=== PATIENT | male | born 1960 | race Caucasian/White ===

== ENCOUNTER 2023-11-27 08:22 | Outpatient (AMB) | payer OTHER, SELFPAY ==
--- NOTE | 2023-11-27 08:24 | MHC.OFFVIS ---
Vital Signs 11/27/23 08:35 Height 5 ft 6 in Weight 214 lb BMI 34.5 BP 172/90 H Blood Pressure Location Rt brachial Position Sitting Pulse 63 Intake Visit Reasons: umbilical hernia Intake Note: This patient was referred by Eve Watson for umbilical hernia assessment. Present for 1-2yrs. Pt c/o: bulging out of belly button. Does crossfit has hard time bending to tie shoes. No DI Chocolatier Required: No Accompanied by: Self / Same As Patient Allergies No Known Allergies Allergy (Verified 11/27/23 08:33) HPI HPI umbilical hernia: Details: 63-year-old male referred for an umbilical hernia. He says he has noticed this lump on his umbilicus for about 1 to 2 years now. He feels that this has increased in size. He says that this causes discomfort when he is bending over. He denies GI complaints He is an ex-smoker. He says he takes a nicotine sublingual for this. He is otherwise healthy and active and does CrossFit. [facility] Medical History Umbilical hernia Social History Alcohol intake: current Alcohol intake frequency: holidays/special occasions only Alcohol type: wine Patient Tobacco Use Status: Never used Tobacco Review of Systems Const Denies chills and Denies fever(s) Card Denies chest pain, Denies dyspnea and Denies dyspnea on exertion Resp Denies cough, Denies dyspnea and Denies dyspnea on exertion GI Denies hematochezia and Denies change in bowel habits Denies hematuria and Denies difficulty urinating Musc Denies back pain and Denies limited range of motion Neuro Denies focal weakness and Denies convulsions Psych Denies depression and Denies mood swings Physical Exam Const General: comfortable and no acute distress Orientation/consciousness: patient oriented x3 Neck Neck: Yes no lymphadenopathy Resp Auscultation: clear to auscultation bilaterally Cardio Rhythm: regular rhythm GI Other: Umbilical hernia, reducible, about 2 cm, nontender Palpation (GI): Soft to palpation, nontender and no guarding Neuro General: patient oriented x3 Assessment & Plan Assessment & Plan (1) Umbilical hernia: Code(s): K42.9 - Umbilical hernia without obstruction or gangrene Category: Medical Plan He has a reducible umbilical hernia as described above. This measures about 2 cm. I explained to him the technique of repair of an umbilical hernia with possible mesh placement. I reviewed the risks including but not limited to bleeding, infections, injury to bowel, recurrence, postop pain, poor healing, inherent risks of anesthesia, as well as the benefits and alternatives. I also described to him what to expect postoperatively. Coding Level of Care Code New Pt Level 3 (88434) Diagnoses Umbilical hernia K42.9
[2023-11-27 08:35] VITALS: BP 172/90; PULSE 63; BMI 34.5
== END 2023-11-27 08:49 | disposition home or self-care (01) ==
PROVIDERS: PCP Internal Medicine; Visit Provider Surgery
DX: K42.9 Umbilical hernia without obstruction or gangrene (principal)
CPT/HCPCS: 99203

== ENCOUNTER → 2023-11-27 08:22 | Outpatient (BNVA) | payer OTHER, SELFPAY | PROVIDERS: PCP Internal Medicine; Visit Provider Surgery ==

== ENCOUNTER 2024-01-06 07:31 | Day surgery (SDC) | payer OTHER, SELFPAY ==
[2024-01-02 09:49] VITALS: BMI 34.5
[2024-01-06 08:00] VITALS: BMI 34.4
[2024-01-06 08:05] VITALS: BP 149/99; PULSE 70; RESP 18; TEMP 36.7; O2SAT 98
--- NOTE | 2024-01-06 09:30 | P.CONAN_ITS ---
HPI - Anesthesia Eval Consult details Narrative: 63 yo M presenting for umbilical hernia repair. Nicotine pouch in mouth upon arrival to Short Stay Surgery. Extensive discussion with patient - he states that nicotine patch does not dissolve. Patient was educated regarding aspiration risk. Surgery to be delayed until patient is 2 hours NPO. PMFSH Active Problems Active Problems: All Active Problems Umbilical hernia (Acute) Past Medical History Medical History GERD (gastroesophageal reflux disease) Former smoker Good exercise tolerance Umbilical hernia Family History Family history of problems with anesthesia: No Surgical History Surgical History Hx of appendectomy H/O colonoscopy History of Problems with Anesthesia: No Social History Social History (Updated 01/02/24 @ 09:46 by Shannon Hardwick RN) Are you a primary point of care technician to a significant other at home: No Do you presently have visiting nurse or other home services: No Alcohol intake: current Alcohol intake frequency: holidays/special occasions only Alcohol type: wine Patient Tobacco Use Status: Former Tobacco user Tobacco use type: Cigarette Patient Interested in Nicotine Replacement: No Have you been hit, kicked, punched, or otherwise hurt by someone within the past year? If so, by whom?: No Are you DNR?: No Advance Directives: No Advance Directives Information Provided: Yes Recently lost weight without trying: No Nutrition Risks: No Nutritional Risk Meds Allergies Allergy/AdvReac Type Severity Reaction Status Date / Time No Known Allergies Allergy Verified 11/27/23 08:33 Active Medications: Current Medications Lactated Ringer's (Lr) 1,000 mls @ 80 mls/hr IVCONT .[id number] [facility] Last Admin: 01/06/24 09:41 Dose: 80 mls/hr Home Medications ?Medication ?Instructions ?Recorded ?Confirmed ?Last Taken ?Type Prilosec OTC 20 mg 01/06/24 01/05/24 History Exam Exam Date and Time: 01/06/24 0940 Height,Weight and Vital Signs: Height 5 ft 6 in Weight 96.615 kg Last Vital Signs Temp 98.1 F 01/06/24 08:05 Pulse 70 01/06/24 08:05 Resp 18 01/06/24 08:05 BP 149/99 H 01/06/24 08:05 Pulse Ox 98 01/06/24 08:05 O2 Del Method Room Air 01/06/24 08:05 Airway Mallampati Class: II TM Dist: >3cm Neck ROM: Full Loose/Missing/Broken Teeth: Yes (missing molar left jaw) Heart: S1S2 Lungs: CTAB Assessment and Plan Assessment Anesthesia Assessment: Anesthesia Plan Discussed and Chart Reviewed Final Anesthetic Review Family History of Problems with Anesthesia: No History of Problems with Anesthesia: No NPO: Yes ASA Class: II Final Preanesthetic Review: No Changes in Pt Med Stat, Meds/Allgs Chart Reviewed, Consent Obtained/Reviewed and Anes Risks/Benef Reviewed Patient Risk: Low Procedure Risk: Low Anesthetic Plan Anesthetic Plan: GA and Agree w/ Assess. and Plan Disposition: Standard PACU
--- NOTE | 2024-01-06 09:36 | MHC.SHP ---
Pre-Procedural Eval Section A - 24 Hr Update-Section A only Date of Service: 01/06/24 Section B - Complete if H&P > 30 days Chief Complaint: Umbilical hernia without obstruction or gangrene Details of Present Illness: Has reducible umbilical hernia Relevant Family History (Specify if Yes): No Relevant Social History: Tobacco Use (Nicotine pouch) Present Medications: see Short Stay Collaborative assessment Medical History: No relevant PMH Allergies: Allergies Allergy/AdvReac Type Severity Reaction Status Date / Time No Known Allergies Allergy Verified 11/27/23 08:33 Review of Systems Sugical H&P ROS: Negative: Constitution, Cardiovascular, Respiratory and Neurological Exam Surgical H&P Exam: Normal: Heart, Normal: Lungs and Normal: Extremities and Significant Findings: Abdomen (Umbilical hernia 2 cm reducible) Plan Diagnosis/Plan: Unchanged I have reviewed the history and physical and performed a pertinent physical examination on my patient. No changes have occurred unless specified. Time Spent With Patient Time: Total time managing care of this patient today ____ minutes.
[2024-01-06] MEDS: Lactated Ringers 1,000 ML 80 ML IVCONT (09:41)
--- NOTE | 2024-01-06 09:46 | PC.NURSE ---
Dr. Dwyer was updated that patient had a nicotine pouch in his mouth upon arrival. Dr. Dwyer and Dr. Britton discussed with patient and each other and decision was made to delay procedure until 10:00 - 2 hours after pouch was removed from mouth. patient in agreeance.
--- NOTE | 2024-01-06 10:40 | W.PM.OPN ---
Operative Note Operative Note Date of Service: 01/06/24 Narrative: Preop diagnosis: Umbilical hernia reducible Postop diagnosis: The same Procedure: Repair of reducible umbilical hernia with mesh Surgeon: Ruy Britton MD assistant infant toddler teacher: KAVYA Claudio The patient is a 63-year-old male with a reducible umbilical hernia, here for repair with mesh. He understood the technique of the planned procedure as well as the risks, benefits, and alternatives. He was brought to the operating room. He was placed supine under general anesthesia via laryngeal mask airway. The abdomen was prepped and draped in the usual sterile fashion. A surgical time-out was done. The patient received cefazolin 2 g IV preoperatively I infiltrated the planned line of incision with lidocaine 1%. I made a transverse supraumbilical curvilinear incision with a blade 15. This was carried down with electrocautery through the full-thickness of the skin subcutaneous fat. I proceeded to then lift the umbilicus as a flap off of the rest of the subcutaneous layer. I was able to identify the sac. This was created from the umbilicus. I sharply dissected the hernia sac down to the fascial layer until I was able to clearly define the defect. I dissected adhesions to clear up the fascial margins. The fascial defect was about 1 cm in diameter. I used a small-sized Ventralex mesh and this was used to reinforced the fascial defect. I secured the Prolene straps of the mesh to the fascial edge with Prolene 2 sutures. I closed the fascial defect with a [id number] Maxon 1 stitch The umbilicus was tacked down to the fascia with a Polysorb 3-0 stitch to re-create the dimple. The subdermal layer was reapposed with Polysorb 3-0 sutures. Skin closure was achieved with Polysorb 4-0 subcuticular running sutures. The area was infiltrated with Marcaine 0.5% for postop analgesia. Dressings were applied. The procedure was completed The patient tolerated the procedure well. There were no immediate complications. There was minimal blood loss The patient was extubated without difficulty and transferred to the recovery room with stable vital signs.
[2024-01-06 10:49] VITALS: BP 167/97; PULSE 68; RESP 18; TEMP 36.2; O2SAT 98
[2024-01-06 10:54] VITALS: BP 161/90; PULSE 66; RESP 18; O2SAT 97
[2024-01-06 10:59] VITALS: BP 161/96; PULSE 64; RESP 18; O2SAT 97
[2024-01-06 11:04] VITALS: BP 162/95; PULSE 62; RESP 18; O2SAT 97
[2024-01-06 11:19] VITALS: BP 148/86; PULSE 61; RESP 18; TEMP 36.6; O2SAT 98
== END 2024-01-06 12:34 | disposition home or self-care (01) ==
PROVIDERS: PCP Internal Medicine; Visit Provider Surgery
PROC: (CPT 49591; principal; 2024-01-06 09:00)
DX: K42.9 Umbilical hernia without obstruction or gangrene (principal); K66.0 Peritoneal adhesions (postprocedural) (postinfection); Z87.891 Personal history of nicotine dependence
CPT/HCPCS: 49591; C1781; J0690; J1100; J1885; J2003; J2405; J2704; J2795; J3010

== ENCOUNTER → 2024-01-06 07:31 | Outpatient (BNV) | payer OTHER, SELFPAY | PROVIDERS: PCP Internal Medicine; Visit Provider Surgery | DX: K42.9 Umbilical hernia without obstruction or gangrene (principal) | CPT/HCPCS: 49591 ==

== ENCOUNTER 2024-01-19 13:28 | Outpatient (AMB) | payer OTHER, SELFPAY ==
--- NOTE | 2024-01-19 13:30 | MHC.OFFVIS ---
Vital Signs 01/19/24 13:31 Height 5 ft 8 in Weight 212 lb BMI 32.2 Intake Visit Reasons: s/p repair umbilical hernia Intake Note: This patient presents for a post-op assessment status post repair of reducible umbilical hernia with mesh. Pt c/o; reports no complaints pertaining to surgery. Glass Deposition Tender Required: No Accompanied by: Self / Same As Patient Allergies No Known Allergies Allergy (Verified 01/19/24 13:35) HPI HPI s/p repair umbilical hernia: Details: He underwent repair of an umbilical hernia with mesh last January 05. He says he is doing ?great?. He says he feels well and never had significant pain PFSH Medical History GERD (gastroesophageal reflux disease) Former smoker Good exercise tolerance Umbilical hernia Surgical History History of umbilical hernia repair (~01/06/24) Hx of appendectomy H/O colonoscopy Social History Are you a primary career transition specialist to a significant other at home: No Do you presently have visiting nurse or other home services: No Alcohol intake: current Alcohol intake frequency: holidays/special occasions only Alcohol type: wine Patient Tobacco Use Status: Former Tobacco user Tobacco use type: Cigarette Review of Systems Const Denies chills and Denies fever(s) Card Denies chest pain at rest GI Denies abdominal pain Physical Exam Vital Signs: BMI result Body Mass Index 32.2 Const General: comfortable and no acute distress Resp Effort & Inspection: normal respiratory effort GI Other: Umbilical hernia repair site is well healed, not infected, repair intact Palpation (GI): Soft to palpation, not firm, nontender and no guarding Assessment & Plan Assessment & Plan (1) Umbilical hernia: Code(s): K42.9 - Umbilical hernia without obstruction or gangrene Category: Medical Plan: Status post repair with mesh procedure doing very well. The repair site is intact. I advised him to avoid lifting anything more than 20 lb for at least 2 more weeks. He can otherwise follow up on a p.r.n. basis. Coding Level of Care Code Global (31342) Diagnoses Umbilical hernia K42.9
[2024-01-19 13:31] VITALS: BMI 32.2
== END 2024-01-19 13:51 | disposition home or self-care (01) ==
PROVIDERS: PCP Internal Medicine; Visit Provider Surgery
DX: K42.9 Umbilical hernia without obstruction or gangrene (principal); Z09 Encounter for follow-up examination after completed treatment for conditions other than malignant neoplasm
CPT/HCPCS: 99212

== ENCOUNTER 2024-07-15 12:51 | Outpatient (REF) | payer OTHER, SELFPAY ==
--- OUTSIDE RECORDS SUMMARY | 2024-07-15 12:55 | XMS_ITS | Encounter Summary ---
Author Organization [facility] Address [address] [place] [address] Care Team Providers Care Software Configuration Engineer Name Role Phone Eve Watson MD Primary Care Provider [phone] Reason for Visit * Reason Onset Date Comments Labs Only 07/15/2024 Encounter Details Date Type Department Care Team ([facility] Contact Info) Description 07/15/2024 Telephone Adult Medicine [address] [phone] Eve Watson MD [address] [place] [phone] Labs Only Social History Tobacco Use Types Packs/Day Years Used Date Smoking Tobacco: Former Cigarettes 0.5 20 Q uit: 2000 Smokeless Tobacco: Former Alcohol Use Standard Drinks/Week Comments Yes 10 (1 standard drink = 0.6 oz pu re alcohol) Housing Instability Answer Date Recorde d Are you worried that in the next 2 months you may not have stable housing? No 07/06/2024 Food Access & Nutrition Answer Date Rec orded Do you have access to a vari ety of food including fruits and vegetables? No 07/06/2024 Health Literacy Answer Date Recorded How often do you need to hav e someone help you when you read instructions, pamphlets, or other written material from your doctor or pharmacy? Never 07/06/2024 Caregiver: How often do you need to have someone help you when you read instructions, pamphlets, or other written material from your doctor or pharmacy? Not on file 07/06/2024 Financial Risk Answer Date Recorded How hard is it for you to pa y for the very basics like food, housing, medical care, and air conditioning / heating? Not very hard 07/06/2024 Transportation Answer Date Recorded Has the lack of transportati on kept you from meetings, work, or from getting things needed for daily living? No Has the lack of transportati on kept you from medical appointments or from getting medications? No 07/06/2024 Social Isolation Answer Date Recorded How often do you feel lonely or isolated from th ose around you? Never 07/06/2024 Food Risk Answer Date Recorded Within the past 12 months we worried whether our food would run out before we got money to buy more. Never true 07/06/2024 Within the past 12 months th e food we bought just didn't last and we didn't have money to get more. Never true 07/06/2024 Dependent Care Answer Date Recorded Do you need help finding or paying for care for your loved ones. For example, exceptional children's teacher or elderly care for an older adult? No 07/06/2024 Education Answer Date Recorded Do you think completing more education or training, like finishing a GED, going to college, or learning a trade, would be helpful for you? No 07/06/2024 Employment and Income Answer Date Recor ded During the last four weeks, have you been actively looking for work? No 07/06/2024 Living Situation Answer Date Recorded What is your living situation? 0 07/06/2024 Sex and Gender Information Value Date Recorded Sex Assigned at Not on file Legal Sex Male 8:44 AM EST Gender Identity Not on file Sexual Orientation Not on file documented as of this encounter Progress Notes * Tameka Gutierrez MA - 07/15/2024 12:23 PM EDT Lab orders faxed via computer and also printed out and handed to pt. * Nadiya Flores - 07/15/2024 11:25 AM EDT Patient calling wanted his lab order to go to [facility] . Currently is at the lab and states he also did fast for them, looking to speak with someone. States he shared in his appt on 07/06 that PCP was supposed to send them there, please advise documented in this encounter Plan of Treatment Upcoming Encounters Date Type Department Care Team (Late st Contact Info) Description 10/21/2024 2:30 PM EDT Office Visit Adult Medicine [address] [phone] Eve Watson MD [address] [place] [phone] documented as of this encounter Visit Diagnoses Not on filedocumented in this encounter Additional Health Concerns Assessment Noted Time PHQ-9 Depression Total Score: 0 07/07/19 25 1:46 PM EDT documented as of this encounter Care Teams Software Configuration Engineer Relationship Specialty Start Date End Date Eve Watson MD [address] [place] [phone] PCP - General Internal Medicine 10/01/21 documented as of this encounter
[2024-07-15 13:08] LABS: MANUAL DIFF FLAG NO
[2024-07-15 13:29] LABS: Basophils Percent Auto 0.3 % (0-2); Eosinophils Absolute Auto 0.1 X10*3/uL (0.0-0.4); Eosinophils Percent Auto 1.4 % (0-4); Hemoglobin 14.4 g/dl (14.0-18.0); Imm Gran Abs Auto 0.03 X10*3/uL (0.00-0.03); Imm Gran Pct Auto 0.4 % (0.0-0.4); Lymphocytes Absolute Auto 1.4 X10*3/uL (1.2-4.9); Lymphocytes Percent Auto 19.9 % (20-40); Mean Corpuscular HGB Conc 34.3 g/dl (31.0-36.0); Mean Corpuscular Hemoglobin 30.2 pg (27.0-33.0); Mean Corpuscular Volume 88.1 fL (80.0-98.0); Mean Platelet Volume 10.1 fL (9.4-12.4); Monocytes Absolute Auto 0.5 X10*3/uL (0.1-1.2); Monocytes Percent Auto 6.6 % (2-11); Neutrophils Absolute Auto 4.9 x10*3/uL (2.0-8.3); Neutrophils Percent Auto 71.4 % (45-73); Platelet Count 206 X10*3/uL (160-400); Red Blood Count 4.77 X10*6/uL (4.60-5.80); Red Cell Distribution Width 13.2 % (11.0-16.0); White Blood Count 6.9 X10*3/uL (4.8-10.8)
[2024-07-15 13:36] LABS: Estimated Average Glucose 108 mg/dL; Hemoglobin A1C 138.2068 umol/L; Hemoglobin A1c % 5.4 % (<6.0); Total Hemoglobin (HGBA1C) 3842.6741 umol/L
[2024-07-15 14:11] LABS: Prostate Specific Antigen Scr 0.38 ng/mL (<0.05-4.0)
[2024-07-15 14:14] LABS: Alanine Aminotransferase 101 U/L (0-40); Albumin Level 4.4 g/dL (3.5-5.0); Alkaline Phosphatase 76 U/L (39-117); Anion Gap 13 (12-20); Aspartate Amino Transferase 48 U/L (5-37); Bilirubin Total 0.7 mg/dL (0.0-1.0); Blood Urea Nitrogen 16 mg/dL (9-16); Calcium 9.4 mg/dL (8.4-10.2); Carbon Dioxide 23 mmol/L (22-29); Chloride 106 mmol/L (96-108); Cholesterol 244 mg/dL (<200); Estimated Glomerular Filt Rate > 60; Glucose Random 92 mg/dL (60-115); HDL Cholesterol 104 mg/dL (>40); LDL Cholesterol Calculated 125 mg/dL (<100); Potassium 4.2 mmol/L (3.3-5.1); Sodium 138 mmol/L (135-145); Total Protein 7.3 g/dL (6.5-8.0); Triglycerides 79 mg/dL (<150)
[2024-07-15 14:25] LABS: Reflex LDLD? No
== END 2024-07-15 12:52 | disposition home or self-care (01) ==
LOC: HO.LAB 12:51
PROVIDERS: PCP Internal Medicine; Visit Provider Internal Medicine
DX: Z00.00 Encounter for general adult medical examination without abnormal findings (principal); Z12.5 Encounter for screening for malignant neoplasm of prostate; Z13.1 Encounter for screening for diabetes mellitus; Z13.220 Encounter for screening for lipoid disorders; Z13.0 Encounter for screening for diseases of the blood and blood-forming organs and certain disorders involving the immune mechanism
CPT/HCPCS: 36415; 80053; 80061; 83036; 84153; 85025

== ENCOUNTER 2024-09-01 12:56 | Outpatient (REF) | payer OTHER, SELFPAY ==
--- OUTSIDE RECORDS SUMMARY | 2024-09-01 13:50 | XMS_ITS | Clinical Summary ---
Author Organization [facility] [address] [facility] Address [address] [place] [address] Phone Care Team Providers Care Sales Representative Aircraft Name Role Phone Eve Watson MD Primary Care Provider [phone] Allergies No known active allergies Medications sildenafiL (VIAGRA) 100 mg tablet Take 0.5 Tablets by mouth as needed for Erectile Dysfunction. 03/02/2021 Active omeprazole OTC (PriLOSEC OTC) 20 mg EC tablet Take 1 tablet (20 mg total) by mouth 1 (one) time each day. Do not crush, chew, or split. 90 tablet 1 07/06/2024 Active Active Problems Problem Noted Date Diagnosed Date ED (erectile dysfunction) 02/23/2024 Elevated blood pressure reading 02/23/2024 Assessment & Plan (07/07/2024 6:20 AM EDT): BP elevated- patient reports feeing anxious at the visit, he reports that this also happens when he goes to the dentist, He reports that he underwent a umbilical hernia repair about 6 months ago at [facility] and Bp was good then. He also had coffee and nicotine prior to the appointment. He does eat hot sauce everyday. He does 3-5 cross fit session per week and walks about 1 mile daily. Patient counseled regarding DASH diet. Patient counseled regarding DASH diet, include more fruits and vegetables, whole grains, low-fat dairy products with decreased amounts of saturated/trans fats, also advised to include aerobic exercise 120 to 150 minutes/week and 65 to 75% max heart rate, with some additional strength training, advised to reduce alcohol to less than 2 drinks per day for meals and less than 1 drink per day for females. 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 GERD (gastroesophageal reflux disease) Overview (02/23/2024): occasional omeprazole use Encounters Date Type Department Care Team Description 07/15/2024 Telephone Adult Medicine [address] [place] [phone] Eve Watson MD Labs Only 07/06/2024 1:30 PM EDT Office Visit Adult [address] [phone] Eve Watson MD PE (physical exam), annual (Primary Dx); Prostate cancer screening; Elevated blood pressure reading; Actinic keratosis; Screening for malignant neoplasm of skin; Tinnitus of both ears from Last 3 Months Immunizations Name Administration Dates Next Due Influenza Quadravalent, MDCK , 0.5ml, preservative free (Flucelvax) 6mo and older 11/27/2021 Surgical History Surgery Date Site/Laterality Comments APPENDECTOMY PROCEDURE: HISTORICAL APPENDECTOMY COLONOSCOPY 02/27/2016 PROCEDURE: HISTORICAL COLONOSCOPY; COMMENT: , one hyperplastic polyp UMBILICAL HERNIA REPAIR 02/17/2023 - 02/17/2024 Medical History Medical History Date Comments GERD (gastroesophageal reflux disease) DX:GERD (gastroesophageal reflux disease); COMMENT: occasional omeprazole use Elevated blood pressure reading DX:Elevated blood pressure reading ED (erectile dysfunction) DX:ED (erectile dysfunction) H/O waterman DX:H/O waterman; CO MMENT: left facial, childhood Family History Medical History Relation Name Comments Schizophrenia Daughter 1 Liver cancer Father Prostate cancer Father COPD Mother long-term smoke r Relation Name Status Comments Brother Alive Daughter 1 Alive Daughter 2 Alive Father Mother Sister Alive Son Alive Social History Tobacco Use Types Packs/Day Years Used Date Smoking Tobacco: Former Cigarettes 0.5 20 Q uit: 1999 Smokeless Tobacco: Former Alcohol Use Standard Drinks/Week [...] care for your loved ones. For example, director child or elderly care for an older adult? [...] on file Sexual Orientation Not on file Obstetrics History Last Filed Vital Signs Vital Sign Reading Time Taken Comments Blood Pressure 150/94 07/07/2024 6:18 AM EDT Pulse 72 07/06/2024 1:41 PM EDT Temperature 36.6 C (97.8 F) 07/06/2024 1:41 PM EDT Respiratory Rate 14 07/06/2024 1:41 PM EDT Oxygen Saturation 98% 07/06/2024 1:41 PM EDT Inhaled Oxygen Concentration - - Weight 97.5 kg (215 lb) 07/06/2024 1:41 PM EDT Height 167.6 cm (5' 6 ) 07/06/2024 1:41 PM EDT Body Mass Index 34.7 07/06/2024 1:41 PM EDT Plan of Treatment Upcoming Encounters Date Type Department Care Team (Late st Contact Info) Description 10/21/2024 2:30 PM EDT Office Visit Adult Medicine [address] [phone] Eve Watson MD [address] [place] [phone] Health Maintenance Due Date Last Done Comments Pneumococcal Vaccine: 50+ Years (1 of 2 - PCV) 1980 Zoster Vaccines (1 of 2) 1980 HIV Screening 01/20/2022 COVID-19 Vaccine ( - season) 2023 01/29/2023, 01/12/2022, 01/04/2021, Additional history exists Influenza Vaccine (#1) 2024 11/27/2021 DTaP,Tdap,and Td Vaccines (1 - Tdap) 07/06/2025 Postponed from 1980 (Patient Refused) Depression Screening 07/06/2025 07/06/2024 Social Influencers of Health Screening 07/06/2025 07/06/2024 Colorectal Cancer Screening: Colonoscopy 02/26/2026 02/27/2016 Cholesterol Screening (Lipid Panel) 03/06/2026 03/06/2021 RSV Immunization Adult Patients (1 - 1-dose 75+ series) 2036 Hepatitis C Screening Completed 08/26/2018 HIB Vaccines Aged Out No longer eligi ble based on patient's age to complete this topic HPV Vaccines Aged Out No longer eligi ble based on patient's age to complete this topic Hepatitis A Vaccines Aged Out No long er eligible based on patient's age to complete this topic Hepatitis B Vaccines Aged Out No long er eligible based on patient's age to complete this topic IPV Vaccines Aged Out No longer eligi ble based on patient's age to complete this topic MMR Vaccines Aged Out No longer eligi ble based on patient's age to complete this topic Meningococcal ACWY Vaccine Aged Out N o longer eligible based on patient's age to complete this topic Meningococcal B Vaccine Aged Out No l onger eligible based on patient's age to complete this topic RSV Immunization Patients Under 20 months Aged Out No longer eligible based on patient's age to complete this topic Varicella Vaccines Aged Out No longer eligible based on patient's age to complete this topic Procedures Procedure Name Priority Date/Time Associated Diagnosis Comments EXTERNAL CLINICAL LAB 07/15/2024 LIPID PANEL Routine 03/06/2021 HEPATITIS C SCREENING Routine 08/26/2018 from Last 3 Months or Most Recently Relevant to Health Maintenance Results * External clinical lab (07/15/2024) [facility] LAB BLOOD ORDERABLES Fin al Result * (ABNORMAL) Lipid panel (03/06/2021) Pathologist [facility] LDL/HDL Ratio 3 0 - 4 Triglycerides 109 0 - 150 mg/dL Cholesterol 207(A) 0 - 200 mg/dL HDL 66 >=40 mg/dL LDL Cholesterol 120(A) 0 - 100 mg/dL Blood Venous blood specimen / Unknown Historical Provider LAB BLOOD ORDERABLES Kaykay l Result * Hepatitis C Screening (08/26/2018) Pathologist [facility] Hepatitis C Screening abstracted Historical Provider HEALTH MAINTENANCE Final Result from Last 3 Months or Most Recently Relevant to Health Maintenance Insurance [employer] [place] [address] Care Teams Sales Representative Aircraft Relationship Specialty Start Date End Date Eve Watson MD [address] [place] [id number] PCP - General Internal Medicine 10/01/21
--- OUTSIDE RECORDS SUMMARY | 2024-09-01 13:50 | XMS_ITS | Clinical Summary ---
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 Role Phone Unavailable Primary Care Provider Unavailabl e Social History Tobacco Use Types Packs/Day Years Used Date Smoking Tobacco: Never Assessed Sex and Gender Information Value Date Recorded Sex Assigned at Not on file Legal Sex Male 11:40 AM EST Gender Identity Not on file Sexual Orientation Not on file Plan of Treatment Health Maintenance Due Date Last Done Comments Colorectal Cancer: [place] PY Screening every 10 yrs (or Modifier) 1961 Depression: Screening Annual ly using PHQ-2/9 in Adults 18 yrs or above (or HM Modifier)([facility]) 09/19/1979 Hepatitis C Virus Infection in Adolescents and Adults: Screening (or Modifier) ([facility]) 09/19/1979 [facility] Screening Reminder: [facility] for all adults ([facility]) 09/19/1979 Tobacco Smoking Cessation: i n Adults excluding Women: Behavioral and Pharmacotherapy Interventions ([facility]) 09/19/1979 DTaP/Tdap/Td Vaccines ([facility]) (1 - Tdap) 1980 Colorectal Cancer Screening 45 -75 Yrs (or HM Modifier ) 2006 Colorectal Cancer: FLEXIBLE SIGMOIDOSCOPY Screening every 5 yrs 2006 Colorectal Cancer: Fecal Imm unochemical Test (FIT) Annually [facility] 2006 Colorectal Cancer: High-sens itivity gFOBT Screening Annually [facility] 2006 Colorectal Cancer: Stool Col oguard Screening every 3 yrs 2006 Colorectal Cancer:CT Colonography Screening every 5 yr s 2006 Pneumococcal Vaccination Scr eening: Patients 50+ yrs of age ([facility]) (1 of 1 - PCV) 09/19/2011 Zoster/Shingles Vaccine Seri es Screening: Adults aged 18+ yrs (or HM Modifiers)([facility]) (1 of 2) 09/19/2011 COVID-19 Vaccine Screening: Initial Series and Booster Status ([facility]) (2023- season) 2023 Flu Vaccination: Yearly for ages 18mos through 64 years (or Modifier)([facility]) 09/17/2024 RSV Vaccines (1 - 1-dose 75+ series) 2036 [employer] Not on file
== END 2024-09-01 12:57 | disposition home or self-care (01) ==
LOC: HO.SH 12:56
PROVIDERS: Visit Provider Internal Medicine
DX: H93.13 Tinnitus, bilateral (principal); H91.93 Unspecified hearing loss, bilateral
CPT/HCPCS: 92557; 92567